=== PATIENT | male | born 1965 | race Caucasian/White ===

== ENCOUNTER 2021-02-20 11:48 | Emergency (ER) | payer OTHER, SELFPAY ==
[2021-02-20 12:14] VITALS: BP 137/92; PULSE 75; RESP 15; TEMP 37; O2SAT 95; BMI 28.3
--- NOTE | 2021-02-20 12:55 | ECG_ITS ---
[facility] Test Date: 2021-02-20 Pat Name: David Young Department: Room: Gender: Male Rn Transport: : 1965 Requested By: Maria Isabel Wheat Order Number: [id number] Luis MD: Camille Hanson M.D. Measurements Intervals [place] Rate: 107 P: [place]: QRS: 37 QRSD: 101 T: 16 QT: 344 QTc: 460 Interpretive Statements ATRIAL FIBRILLATION WITH RAPID VENTRICULAR RESPONSE MINIMAL VOLTAGE CRITERIA FOR LVH, CONSIDER NORMAL VARIANT [MEETS CRITERIA IN ONE OF: R(aVL), S(V1), R(V5), R(V5/V6)+S(V1)] NONSPECIFIC ST & T-WAVE ABNORMALITY ABNORMAL RHYTHM ECG Compared to ECG 04/25/2015 18:55:18 No significant changes Electronically Signed On 02-20-2021 22:44:29 SPLASH LINE OPERATOR by Camille Hanson M.D. [id number]
--- NOTE | 2021-02-20 13:20 | ED_ITS ---
HPI - Extremity Problem General: Chief complaint: Extremity Problem,Nontraumatic Stated complaint: POSS BLOOD CLOT RLE: [place] [facility] [place] Seen by Provider: 02/20/21 13:18 History of Present Illness: HPI Narrative: 56-year-old male presents emergency room chief complaint of right lower leg pain. Patient was seen at a local clinic and noted to have right lower leg pain he had venous duplex done which was positive for DVT. Patient has a history of atrial fibrillation but is not on any anticoagulation besides a full sized aspirin daily. He denies any chest pain or shortness of breath. MD Complaint: extremity pain and extremity swelling Onset (ago): day(s) Pain Consistency: constant Location: right and lower extremity Quality: aching Radiation: none Relieving factors: nothing Exacerbating factors: nothing Associated symptoms: Deny chest pain, fever(s) or rash Review of Systems Const: Denies: fever(s), chills, body aches, change in appetite, fatigue or malaise ENMT: Denies: throat pain, ear or mastoid pain, nasal discharge or nasal congestion Card: Denies: chest pain, edema, dyspnea on exertion or orthopnea Resp: Denies: dyspnea, productive cough or non-productive cough GI: Denies: abdominal pain, nausea, vomiting, hematemesis, coffee ground emesis, diarrhea, constipation, bloating, hematochezia or melena : Denies: flank pain, dysuria, urinary frequency or urinary urgency Skin/Breast: Denies: rash or pruritus PFSH ED PFSH: Medical History Atrial fibrillation MVP (mitral valve prolapse) Family History Father Myocardial infarction CAD (coronary artery disease) Stroke Cancer Mother Myocardial infarction CAD (coronary artery disease) Stroke Social History Smoking and tobacco status: former smoker Alcohol intake: former Household members: spouse Marital status: service: No Current occupational status: employed Current occupation: [employer] Current gender identity: Male Physical Exam Const: COMMON NORMALS: no acute distress GENERAL APPEARANCE: cooperative and comfortable ORIENTATION/CONSCIOUSNESS: Yes awake, Yes oriented to person, Yes oriented to place and Yes oriented to time HENMT: COMMON NORMALS: normocephalic, atraumatic and hearing grossly normal bilaterally HEAD & SCALP: normocephalic and atraumatic Neck/C-Spine: COMMON NORMALS: no JVD Resp: COMMON NORMALS: normal respiratory effort, No retractions, No use of accessory muscles and clear to auscultation bilaterally AUSCULTATION: clear to auscultation bilaterally Cardio: COMMON NORMALS: no JVD, regular rate, regular rhythm and No murmurs present (Cardio) RATE: regular rate RHYTHM: regular rhythm GI: COMMON NORMALS: Soft to palpation and No hepatosplenomegaly present AUSCULTATION: Yes normoactive bowel sounds PALPATION: Yes Soft to palpation, No Tenderness to palpation present (GI), No Guarding due to palpation present (GI) and Yes No hepatosplenomegaly present Extremity: COMMON NORMALS: normal to inspection, capillary refill normal, no clubbing, cyanosis or edema, no calf tenderness and no pedal edema Neuro: SENSORIUM/ORIENTATION: Yes oriented to person, Yes oriented to place and Yes oriented to time Skin: COMMON NORMALS: no rashes or lesions noted GENERAL SKIN EXAM: no nahid hes or lesions noted Course Vital Signs: Vital signs: Vital Signs Temperature 98.6 F 02/20/21 12:14 Pulse Rate 102 H 02/20/21 14:48 Respiratory Rate 18 02/20/21 14:48 Blood Pressure 134/93 02/20/21 13:41 Pulse Oximetry 94 02/20/21 14:48 MDM - Extremity (Nontraumatic) MDM Narrative: Medical decision making narrative: Labs and imaging reviewed. Does have small PE on CTA. We will go ahead and start him on Eliquis. He is post Covid. Lab Data: Labs: Lab Results 02/20/21 02/20/21 13:38 13:38 WBC 10.3 10^3/uL H 10 ^3/uL (4.0-10.0) RBC 5.01 10^6/uL 10^6 /uL (4.1-5.3) Hgb 15.0 g/dL g/dL (11.7-16.6) Hct 42.2 % % (42.0-52.0) MCV 84.2 fl fl (80-94) MCH 29.9 pg pg (28.0-34.0) MCHC 35.5 g/dL g/dL (30.0-36.0) RDW 11.9 % L % (12.1-15.1) Plt Count 319 10^3/cmm 10^3 /cmm (130-400) MPV 10.4 fL fL (7.4-10.4) Neut % (Auto) 72.5 % % Lymph % (Auto) 19.2 % % Bertie % (Auto) 5.8 % % Eos % (Auto) 1.2 % % Baso % (Auto) 0.5 % % Neut # (Auto) 7.45 10^3/uL 10^3 /uL (1.8-7.7) Lymph # (Auto) 2.0 10^3/uL 10^3/ uL (0.8-4.8) Bertie # (Auto) 0.6 10^3/uL 10^3/ uL (0.2-0.9) Eos # (Auto) 0.1 10^3/uL 10^3/ uL (0.0-0.8) Baso # (Auto) 0.1 10^3/uL 10^3/ uL (0.0-0.1) Nucleated RBC % (a uto) 0 % % Nucleated RBCs # 0.0 /100WBC /100W BC Sodium 136 mmol/L mmol/L (136-145) Potassium 4.3 mmol/L mmol/L (3.5-5.1) Chloride 101 mmol/L mmol/L (98-107) Carbon Dioxide 25 mmol/L mmol/L (22-29) Anion Gap 14.3 (5-19) BUN 13 mg/dL mg/dL (6-20) Creatinine 0.8 mg/dL mg/dL (0.7-1.2) GFR Calculation 99.6 mL/min mL/mi n (90-130) Glucose 132 mg/dL H mg/dL (65-115) Calculated Osmolal ity 284 mOsm/kg L mOs m/kg (285-295) Calcium 8.6 mg/dL mg/dL (8.5-10.5) Total Bilirubin 0.5 mg/dL mg/dL (0.15-1.2) AST 35 U/L U/L (0-40) ALT 57 U/L H U/L (0-41) Alkaline Phosphata se 70 IU/L IU/L (40-130) Total Protein 6.9 g/dL g/dL (6.6-8.7) Albumin 3.6 g/dL g/dL (3.5-5.2) Globulin 3.3 g/dL g/dL (1.3-4.6) Discharge Plan Discharge Patient Disposition: Home Clinical Impression: Pulmonary emboli, DVT (deep venous thrombosis), [id number] condition Condition: Stable Prescriptions: New [id number] Pets DVT-PE Treat 30D Start 5 mg (74 tabs) tablets,dose pack See Rx Instructions .ROUTE .COMPLEX Qty: 74 RF: 0 No Action aspirin 325 mg tablet 325 mg PO QPM RF: 0 pantoprazole 40 mg tablet,delayed release (DR/EC) 40 mg PO QPM RF: 0 Tylenol Ex Str Rapid Release 500 mg Tablet 2,000 mg PO Q4H PRN (Reason: Pain) RF: 0 Vitamin C 500 mg Tablet 500 mg PO DAILY RF: 0 ibuprofen 200 mg Tablet 800 mg PO Q4H PRN (Reason: Pain) RF: 0 zinc 50 mg Tablet 50 mg PO DAILY RF: 0 Vitamin D3 1 cap PO DAILY RF: 0 Discharge Orders: Discharge ED (Routine); Ordered 02/20/21 Ordered By: Matty Gabriel Referrals: Ramón Vallejo DO [Primary Care Provider] - Discharge Diet: Usual diet Discharge Activity: Increase activity as tolerated Patient Instructions: Opioid Safety Activity Restrictions/Additional Instructions: In addition to the DVT found at the primary care doctor's office you do have pulmonary emboli. Coding Level of Care Code ED Work Order Sorting Clerk for Sarah Fwd Exam Comprehensive
--- NOTE | 2021-02-20 13:26 | CT_ITS ---
WS: [id number] CTA OF THE CHEST WITH PULMONARY EMBOLISM PROTOCOL TECHNIQUE: High-resolution contrast enhanced CTA of the chest with coronal and sagittal reformatted i mages with pulmonary embolism protocol. MIP images are also reviewed. CLINICAL INFORMATION: tachycardia/DVT COMPARISON: None. DLP: 582.[address] scans at [facility] use at least one of these dose optimization techniques: automated e xposure control; mA and/or kV adjustment per patient size (includes targeted exams where dose is matc hed to clinical indication); or iterative reconstruction. FINDINGS: Bilateral patchy hazy groundglass infiltrates suspicious for covid 19 pneumonia. No focal consolidati on pleural fluid. Cardiomegaly. Proximal main pulmonary arteries are normal. Filling defects in the left upper lobe pulmonary artery branches compatible with pulmonary embolus. Additional filling defects in the right lower lobe pulmon adiel arteries. Enlarged anterior mediastinal peribronchial and bilateral hilar lymph nodes nonspecific but likely re active. Adrenal glands are normal. Small left renal cyst. Small esophageal hiatal hernia. CT/CT angio chest PE protcl [id number] IMPRESSION: 1. A few small filling defects described above consistent with acute pulmonary embolus. 2. Diffuse hazy groundglass pulmonary infiltrates suspicious for Covid19 pneum onia. 3. Enlarged mediastinal, peribronchial and hilar lymph nodes nonspecific but m ost likely reactive. 4. Cardiomegaly Notified Matty Gabriel DO at 02/20/2021 2:26 PM.
[2021-02-20 13:41] VITALS: BP 134/93; PULSE 103; RESP 15; O2SAT 93
[2021-02-20 13:50] LABS: Basophils # 0.1 10^3/uL (0.0-0.1); Basophils % 0.5 %; Eosinophils # 0.1 10^3/uL (0.0-0.8); Eosinophils % 1.2 %; Hematocrit 42.2 % (42.0-52.0); Lymphocytes % 19.2 %; Mean Corpuscular HGB Conc 35.5 g/dL (30.0-36.0); Mean Corpuscular Hemoglobin 29.9 pg (28.0-34.0); Mean Corpuscular Volume 84.2 fl (80-94); Mean Platelet Volume 10.4 fL (7.4-10.4); Monocytes # 0.6 10^3/uL (0.2-0.9); Monocytes % 5.8 %; Neutrophils # 7.45 10^3/uL (1.8-7.7); Neutrophils % 72.5 %; Nucleated Red Blood Cells % 0 %; Platelet Count 319 10^3/cmm (130-400); Red Blood Count 5.01 10^6/uL (4.1-5.3); Red Cell Distribution Width 11.9 % (12.1-15.1); White Blood Count 10.3 10^3/uL (4.0-10.0)
[2021-02-20] MEDS: iohexol 350 mg/mL 100 mL Btl IV (14:02)
[2021-02-20 14:21] VITALS: PULSE 113; RESP 16; O2SAT 93
[2021-02-20 14:22] LABS: Alanine Aminotransferase 57 U/L (0-41); Albumin Level 3.6 g/dL (3.5-5.2); Alkaline Phosphatase 70 IU/L (40-130); Anion Gap 14.3 (5-19); Aspartate Amino Transferase 35 U/L (0-40); Blood Urea Nitrogen 13 mg/dL (6-20); Calcium 8.6 mg/dL (8.5-10.5); Carbon Dioxide 25 mmol/L (22-29); Chloride 101 mmol/L (98-107); Creatinine Clr Calc Pharmacy 135.9626; Globulin 3.3 g/dL (1.3-4.6); Glomerular Filtration Rate 99.6 mL/min (90-130); Glucose 132 mg/dL (65-115); Osmolality Calculated 284 mOsm/kg (285-295); Potassium 4.3 mmol/L (3.5-5.1); Sodium 136 mmol/L (136-145); Total Bilirubin 0.5 mg/dL (0.15-1.2); Total Protein 6.9 g/dL (6.6-8.7)
[2021-02-20] MEDS: enoxaparin 100 mg/mL Syringe SUBCUT (14:43)
[2021-02-20 14:48] VITALS: PULSE 102; RESP 18; O2SAT 94
== END 2021-02-20 14:47 | disposition home or self-care (01) ==
PROVIDERS: Emergency Provider Family Medicine; PCP Internal Medicine
DX: I26.99 Other pulmonary embolism without acute cor pulmonale (principal); I82.401 Acute embolism and thrombosis of unspecified deep veins of right lower extremity; U09.9 Post COVID-19 condition, unspecified; Z79.82 Long term (current) use of aspirin; Z87.891 Personal history of nicotine dependence
CPT/HCPCS: 71275; 80053; 85025; 93005; 96372; 99283; J1650; Q9967

== ENCOUNTER → 2021-12-31 09:00 | Outpatient (BNVA) | payer OTHER, SELFPAY | PROVIDERS: PCP Family Medicine; Visit Provider Family Medicine | DX: I48.91 Unspecified atrial fibrillation (principal); K21.9 Gastro-esophageal reflux disease without esophagitis; I48.0 Paroxysmal atrial fibrillation | CPT/HCPCS: 80053; 85025 ==

== ENCOUNTER → 2022-12-25 08:58 | Outpatient (BNVA) | payer OTHER, SELFPAY | PROVIDERS: PCP Family Medicine; Visit Provider Family Medicine | DX: R73.9 Hyperglycemia, unspecified (principal); M25.559 Pain in unspecified hip; K21.9 Gastro-esophageal reflux disease without esophagitis; I48.91 Unspecified atrial fibrillation | CPT/HCPCS: 80053; 82607; 83036; 85025 ==

== ENCOUNTER → 2023-04-14 08:08 | Outpatient (BNVA) | payer OTHER, SELFPAY | PROVIDERS: PCP Family Medicine; Visit Provider Family Medicine | DX: E11.9 Type 2 diabetes mellitus without complications (principal) | CPT/HCPCS: 80048; 83036 ==

== ENCOUNTER → 2023-10-20 08:37 | Outpatient (BNVA) | payer OTHER, SELFPAY | PROVIDERS: PCP Family Medicine; Visit Provider Family Medicine | DX: I48.0 Paroxysmal atrial fibrillation (principal); E11.9 Type 2 diabetes mellitus without complications; R03.0 Elevated blood-pressure reading, without diagnosis of hypertension | CPT/HCPCS: 80053; 80061; 83036; 85025 ==

== ENCOUNTER → 2024-04-26 09:27 | Outpatient (BNVA) | payer OTHER, SELFPAY | PROVIDERS: PCP Family Medicine; Visit Provider Family Medicine | DX: I48.0 Paroxysmal atrial fibrillation (principal); E11.9 Type 2 diabetes mellitus without complications; Z79.01 Long term (current) use of anticoagulants | CPT/HCPCS: 85025 ==